=== PATIENT | male | born 2000 | race Caucasian/White ===

== ENCOUNTER 2025-08-14 07:56 | Outpatient (AMB) | payer BC, SELFPAY ==
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
--- OUTSIDE RECORDS SUMMARY | 2025-08-14 08:00 | XMS_ITS | Clinical Summary ---
Author Organization [facility] Address [address] [place] [address] Care Team Providers Care Business Solutions Consultant Name Role Phone Jelena Wright NP Primary Care Provider [phone] Allergies No known active allergies Medications Medication Sig Dispensed Refills Start Date End Date Status SUMAtriptan (IMITREX) 50 MG tablet TAKE 1 TABLET BY MOUTH 1 TIME NEEDED FOR MIGRAINE HEADACHE. MAY REPEAT DOSE AFTER 2 HOURS UP TO A. MAXIMUM OF 200 MG IN 24 HOURS 0 11/03/2021 Active buPROPion (WELLBUTRIN XL) 150 MG 24 hr tablet TAKE 1 TABLET BY MOUTH EVERY 24 HOURS 0 11/13/2023 Active magnesium oxide (MAG-OX) 400 MG tablet Take 1 tablet (400 mg total) by mouth daily. 0 11/13/2023 Active Riboflavin (Vitamin B-2) 100 MG TABS Take by mouth. 0 07/12/2023 Acti ve busPIRone (BUSPAR) 7.5 MG tablet Take 2 tablets (15 mg total) by mouth. 0 04/11/2023 Active acetaminophen (TYLENOL) 325 MG tablet Take 3 tablets (975 mg total) by mouth every 8 (eight) hours as needed for pain for up to 15 doses. 15 tablet 0 11/19/2023 Active cyclobenzaprine (FLEXERIL) 10 MG tablet Take 1 tablet (10 mg total) by mouth 3 (three) times a day as needed for up to 15 doses. 15 tablet 0 11/19/2023 Active ibuprofen 800 MG tablet Take 1 tablet (800 mg total) by mouth every 8 (eight) hours as needed for pain for up to 15 doses. 15 tablet 0 11/19/2023 Active oxyCODONE (ROXICODONE) 5 MG immediate release tablet Take 1 tablet (5 mg total) by mouth every 4 (four) hours as needed for pain. 15 tablet 0 11/19/2023 Active predniSONE (DELTASONE) 50 MG tablet Take 1 tablet (50 mg total) by mouth daily. 5 tablet 0 02/22/2024 Active naproxen (Naprosyn) 500 MG tablet Take 1 tablet (500 mg total) by mouth 2 (two) times a day as needed. 30 tablet 0 02/22/2024 Active methocarbamol (ROBAXIN) 500 MG tablet Take 1 tablet (500 mg total) by mouth 3 (three) times a day as needed for up to 15 doses. 15 tablet 0 04/10/2024 Active ondansetron (ZOFRAN-ODT) 8 MG disintegrating tablet Take 1 tablet (8 mg total) by mouth every 12 (twelve) hours as needed for nausea for up to 15 doses. 15 tablet 0 04/10/2024 Active oxyCODONE-acetaminophe n (PERCOCET) 5-325 MG per tablet Take 1 tablet by mouth every 6 (six) hours as needed for pain. 10 tablet 0 05/28/2024 Active ondansetron (ZOFRAN-ODT) 4 MG disintegrating tablet Take 1 tablet (4 mg total) by mouth every 6 (six) hours as needed. 10 tablet 0 05/28/2024 Active Active Problems No known active problems Social History Tobacco Use Types Packs/Day Years Used Date Smoking Tobacco: Every Day Cigarettes 0.5 Smokeless Tobacco: Never Alcohol Use Standard Drinks/Week Comments Not Currently 0 (1 standard drink = 0.6 oz pur e alcohol) Sex and Gender Information Value Date Recorded Sex Assigned at Male 11/16/2021 6:17 PM EST Gender Identity Male 08/04/2022 8:13 AM EDT Sexual Orientation Not on file Job Start Date Occupation Industry Not on file Not on file Not on file Last Filed Vital Signs Vital Sign Reading Time Taken Comments Blood Pressure 122/83 09/18/2024 8:47 PM EDT Pulse 80 09/18/2024 8:47 PM EDT Temperature 37 C (98.6 F) 09/18/2024 8:47 PM EDT Respiratory Rate 18 09/18/2024 8:47 PM EDT Oxygen Saturation 97% 09/18/2024 8:47 PM EDT Inhaled Oxygen Concentration - - Weight 99.3 kg (219 lb) 09/18/2024 8:47 PM EDT Height 180.3 cm (5' 11 ) 09/18/2024 8:47 PM EDT Body Mass Index 30.54 09/18/2024 8:47 PM EDT Plan of Treatment Health Maintenance Due Date Last Done Comments Hepatitis C Screening 2000 COVID-19 Vaccine (#1) 05/05/1999 Pneumococcal Vaccine (1 of 1 - PPSV23 or PCV20) 2004 09/14/2000, 07/06/2000 Depression Screening 2010 Preventative Health Evaluation 2016 Influenza Vaccine (#1) 2025 , 11/02/2021, 08/03/2016, Additional history exists DTap / Tdap / Td (9 - Td or Tdap) 02/20/2028 02/19/2018, 02/19/2018, 01/11/2010, Additional history exists Hepatitis B Vaccines Completed 08/05/1999, 01/05/1999, 1998 RSV Ped < 20 months Aged Out No longe r eligible based on patient's age to complete this topic Advance Directives For more information, please contact: [phone] Documents on File Type Date Recorded Patient Animal Care Provider Expl anation Advance Directive and Living Will 08/04/2022 8:13 AM Care Teams Business Solutions Consultant Relationship Specialty Start Date End Date Jelena Wright NP [address] [place] [id number] PCP - General Family Medicine 11/16/21
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
--- OUTSIDE RECORDS SUMMARY | 2025-08-14 08:00 | XMS_ITS | Clinical Summary ---
Author Organization [facility] Address [address] [place] [id number] Phone Care Team Providers Care Tour Bus Driver/Guide Name Role Phone Austin Mcdaniel MD Primary Care Provider Unavai lable Allergies No known active allergies Medications Albuterol Sulfate (PROAIR HFA IN) Inhale. Active FLUoxetine 20 MG tabletIndication s:Depression with anxiety Take 1 tablet (20 mg total) by mouth once daily. 30 tablet 09/16/2018 Active Active Problems Problem Noted Date Diagnosed Date Allergic rhinitis 04/23/2018 Mild intermittent asthma 04/23/2018 Depression with anxiety 04/23/2018 Immunizations Immunization Administration Dates Next Due DTaP 12/03/2003, 0,05/09/1999,03/04,01/05/1999 HPV, Quadrivalent 08/13/2014,03/24/2014,01/21/20 14 Hep B, ped/adol 08/05/1999,01/05/1999,1998 Hib (PRP-T) 02/06/2000, 9,03/04/1999,01/05 IPV 12/03/2003, 0,03/04/1999,01/05 Influenza 09/13/2007 Influenza, injectable, quadrivalent 08/23/2013,1 ,08/12/2011 Influenza, injectable, quadr ivalent, preservative free 08/03/2016,08/21/2015,08/22/2014 MMR 11/07/2002,11/21/1999 Meningococcal Conj (Menactra) MCV4P 02/10/2015,0 01/11/2010 Pneumococcal Conjugate 09/14/2000,07/06/2000 Td (adult) (Tenivac), 5 Lf t etanus toxoid, PF, adsorbed 02/19/2018 Tdap 01/11/2010 Varicella 01/08/2009,11/21/1999 Social History Tobacco Use Types Packs/Day Years Used Date Smoking Tobacco: Never Assessed Sex and Gender Information Value Date Recorded Sex Assigned at Not on file Legal Sex Male 6:19 PM EDT Gender Identity Not on file Sexual Orientation Not on file Last Filed Vital Signs Vital Sign Reading Time Taken Comments Blood Pressure 108/68 07/30/2018 9:56 AM EDT Pulse 91 03/30/2017 12:00 AM EDT Temperature 36.5 C (97.7 F) 07/30/2018 9:56 AM EDT Respiratory Rate - - Oxygen Saturation 98% 03/30/2017 12:00 AM EDT Inhaled Oxygen Concentration - - Weight 77.7 kg (171 lb 4 oz) 07/30/2018 9:56 AM EDT Height 180.3 cm (5' 11 ) 07/27/2018 2:08 PM EDT Body Mass Index 23.88 07/27/2018 2:08 PM EDT Plan of Treatment Health Maintenance Due Date Last Done Comments Influenza Vaccines (#1) 2025 08/03/20 16, 08/21/2015, 08/22/2014, Additional history exists COVID-19 Vaccine ( season) 2025 DTaP,Tdap,and Td Vaccines (8 - Td or Tdap) 02/20/2028 02/19/2018, 01/11/2010, 12/03/2003, Additional history exists Hepatitis B Vaccines Completed 08/05/1999, 01/05/1999, 1998 HIB Vaccines Completed 02/06/2000, 04/20, 03/04/1999, Additional history exists Pneumococcal Vaccine Completed 09/14/2000, 07/06/20 MMR Vaccines Completed 11/07/2002, 11/21/1999 IPV Vaccines Completed 12/03/2003, 01/2000, 03/04/1999, Additional history exists Varicella Vaccines Completed 01/08/2009, 11/21/1999 HPV Vaccines Completed 08/13/2014, 05/0 04/2014, 01/20/2014 Meningococcal Vaccine Completed 02/10/2015, 010 Hepatitis A Vaccines Aged Out No long er eligible based on patient's age to complete this topic Men B Vaccine Aged Out No longer elig ible based on patient's age to complete this topic Insurance [facility] [employer] Care Teams Tour Bus Driver/Guide Relationship Specialty Start Date End Date Austin Mcdaniel MD PCP - General Pediatrics 04/22/18
--- OUTSIDE RECORDS SUMMARY | 2025-08-14 08:00 | XMS_ITS | Encounter Summary ---
Author Organization [facility] Address [address] [place] [id number] Phone Care Team Providers Care Track Laying Machine Operator Name Role Phone Austin Mcdaniel MD Primary Care Provider Juan ram Encounter Details Date Type Department Care Team (Late st Contact Info) Description 04/07/2018 Conversion [facility]counter [facility] [address] [address] Social History Tobacco Use Types Packs/Day Years Used Date Smoking Tobacco: Never Assessed Sex and Gender Information Value Date Recorded Sex Assigned at Not on file Legal Sex Male 6:19 PM EDT Gender Identity Not on file Sexual Orientation Not on file documented as of this encounter Plan of Treatment Not on file documented as of this encounter Visit Diagnoses Not on filedocumented in this encounter Care Teams Track Laying Machine Operator Relationship Specialty Start Date End Date Austin Mcdaniel MD PCP - General Pediatrics 04/22/18 documented as of this encounter
--- OUTSIDE RECORDS SUMMARY | 2025-08-14 08:00 | XMS_ITS | Clinical Summary ---
Author Organization [facility] Address [address] [place] [address] Phone Care Team Providers Care Geomagnetist Name Role Phone Jelena Wright Primary Care Provider Allergies No known active allergies Medications buPROPion XL (WELLBUTRIN XL) 300 mg 24 hr tablet Take 1 tablet (300 mg total) by mouth 1 (one) time each day. Active topiramate (TOPAMAX SPRINKLE) 25 mg capsule Take 1 capsule (25 mg total) by mouth at bedtime. Active busPIRone (BUSPAR) 7.5 mg tablet Take 2 tablets (15 mg total) by mouth 2 (two) times a day. 3 Active magnesium oxide (MAG-OX) 400 mg (241.3 elemental magnesium) tablet Take 1 tablet (400 mg total) by mouth 1 (one) time each day. Active lidocaine 4 % patch Apply 1 patch topically 1 (one) time each day. 30 each 5 09/07/20 25 Active Encounters Date Type Department Care Team Description 08/08/2025 8:09 PM EDT - 08/08/2025 8:53 PM EDT Emergency [facility] [address] [place] [phone] Momo Boudreaux MD Acute left-sided low back pain with left-sided sciatica (Primary Dx) Discharge Disposition: Home or Self Care from Last 3 Months Surgical History Surgery Date Site/Laterality Comments HERNIA REPAIR PROCEDURE:HERNIA REPAIR Medical History Medical History Date Comments Migraines DX:Migraines Arthritis DX:Arthritis;COM MENT: in back Social History Tobacco Use Types Packs/Day Years [...] Orientation Straight 12/30/2024 12 :12 PM EST Obstetrics History Last Filed Vital Signs Vital Sign Reading Time Taken Comments Blood Pressure 123/87 08/08/2025 8:02 PM EDT Pulse 95 08/08/2025 8:02 PM EDT Temperature 37 C (98.6 F) 08/08/2025 8:02 PM EDT Respiratory Rate 18 08/08/2025 8:02 PM EDT Oxygen Saturation 98% 08/08/2025 8:02 PM EDT Inhaled Oxygen Concentration - - Weight 97.5 kg (215 lb) 12/30/2024 11:34 AM EST Height 180.3 cm (5' 11 ) 12/30/2024 11:34 AM EST Body Mass Index 29.99 12/30/2024 11:34 AM EST Plan of Treatment Health Maintenance Due Date Last Done Comments Pneumococcal Vaccine: Pediatrics (0 to 5 Years) and At-Risk Patients (6 to 49 Years) (1 of 1 - PPSV23) 2004 09/14/2000, 07/06/2000 Cholesterol Screening (Lipid Panel) 10/22/2022 HIV Screening 10/22/2022 Hepatitis C Screening 10/22/2022 Social Influencers of Health Screening 10/22/2022 Depression Screening 11/19/2024 COVID-19 Vaccine ( season) 2025 10/20/2021, 04/12/2021, 03/15/2021 Influenza Vaccine (#1) 2025 , 11/30/2023, 11/02/2021, Additional history exists DTaP,Tdap,and Td Vaccines (8 - Td or Tdap) 02/20/2028 02/19/2018, 01/11/2010, 12/03/2003, Additional history exists RSV Immunization Adult Patients (1 - 1-dose 75+ series) 2073 Hepatitis B Vaccines Completed 08/05/1999, 01/05/1999, 1998 HIB Vaccines Completed 02/06/2000, 1998, 03/04/1999, Additional history exists MMR Vaccines Completed 11/07/2002, 11/21/1999 IPV Vaccines Completed 12/03/2003, 01/2000, 03/04/1999, Additional history exists Varicella Vaccines Completed 01/08/2009, 11/21/1999 HPV Vaccines Completed 08/13/2014, 04/2014, 01/20/2014 Meningococcal ACWY Vaccine Completed 02/10/2015, Hepatitis A Vaccines Aged Out No long er eligible based on patient's age to complete this topic Meningococcal B Vaccine Aged Out No l onger eligible based on patient's age to complete this topic RSV Immunization Patients Under 20 months Aged Out No longer eligible based on patient's age to complete this topic Insurance [facility] Care Teams Geomagnetist Relationship Specialty Start Date End Date Jelena Wright [address] [place] [address] PCP - General Family Medicine 11/16/21
--- OUTSIDE RECORDS SUMMARY | 2025-08-14 08:00 | XMS_ITS | Encounter Summary ---
Author Organization [facility] Address [address] [place] [id number] Phone Care Team Providers Care Shipping Clerk/Admin Name Role Phone Austin Mcdaniel MD Primary Care Provider Juan ram Encounter Details Date Type Department Care Team (Late st Contact Info) Description 01/11/2010 Documentation [facility] [place] [place] Family Medicine [address] [place] [address] Family Medicine, Physician [address] [place] [address] Social History Tobacco Use Types Packs/Day Years [...] on filedocumented in this encounter Care Teams Shipping Clerk/Admin Relationship Specialty Start Date End Date Austin Mcdaniel MD PCP - General Pediatrics 04/22/18 documented as of this encounter
[2025-08-14 08:06] VITALS: BP 118/70; PULSE 93; RESP 16; O2SAT 98; BMI 25.1
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
== END 2025-08-14 08:45 | disposition home or self-care (01) ==
LOC: HO.HSM 07:56
PROVIDERS: PCP Nurse Practitioner Family; Visit Provider Nurse Practitioner
DX: M25.511 Pain in right shoulder (principal); M25.512 Pain in left shoulder; M54.81 Occipital neuralgia; M79.18 Myalgia, other site; G43.709 Chronic migraine without aura, not intractable, without status migrainosus
CPT/HCPCS: 20552; 64405; 99214

== ENCOUNTER → 2025-08-14 07:56 | Outpatient (BNVA) | payer BC, SELFPAY | PROVIDERS: PCP Nurse Practitioner Family; Visit Provider Nurse Practitioner | DX: M25.511 Pain in right shoulder (principal); M54.81 Occipital neuralgia; M79.18 Myalgia, other site; G43.709 Chronic migraine without aura, not intractable, without status migrainosus | CPT/HCPCS: 20552; 64405; J0665; J2003 ==

== ENCOUNTER 2025-09-08 08:22 | Outpatient (AMB) | payer BC, SELFPAY ==
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
[2025-09-08 08:27] VITALS: BP 118/78; PULSE 91; RESP 16; O2SAT 98; BMI 25.1
--- OUTSIDE RECORDS SUMMARY | 2025-09-08 08:32 | XMS_ITS | Clinical Summary ---
Author Organization [facility] Address [address] [place] [id number] Phone Care Team Providers Care Green Building Energy Engineer Name Role Phone Austin Mcdaniel MD Primary [...] patient's age to complete this topic Insurance [facility] [employer] Care Teams Green Building Energy Engineer Relationship Specialty Start Date End Date Austin Mcdaniel MD PCP - General Pediatrics 04/22/18
--- OUTSIDE RECORDS SUMMARY | 2025-09-08 08:32 | XMS_ITS | Encounter Summary ---
Author Organization [facility] Address [address] [place] [phone] Phone Care Team Providers Care Chief Engineer Research Name Role Phone Austin Mcdaniel MD Primary Care Provider Juan ram Encounter Details Date Type Department Care Team (Late st Contact Info) Description 04/07/2018 Conversion Encounter [facility] [address] [address] Social History Tobacco Use Types Packs/Day Years [...] on filedocumented in this encounter Care Teams Chief Engineer Research Relationship Specialty Start Date End Date Austin Mcdaniel MD PCP - General Pediatrics 04/22/18 documented as of this encounter
--- OUTSIDE RECORDS SUMMARY | 2025-09-08 08:32 | XMS_ITS | Encounter Summary ---
Author Organization [facility] Address [address] [place] [phone] Phone Care Team Providers Care Clinical Team Lead Name Role Phone Austin Mcdaniel MD Primary Care Provider Juan ram Encounter Details Date Type Department Care Team (Late st Contact Info) Description 01/11/2010 Documentation [facility] [place] [facility] [address] [place] [address] Family Medicine, Physician [address] [place] [address] Social History Tobacco Use Types Packs/Day Years [...] on filedocumented in this encounter Care Teams Clinical Team Lead Relationship Specialty Start Date End Date Austin Mcdaniel MD PCP - General Pediatrics 04/22/18 documented as of this encounter
--- OUTSIDE RECORDS SUMMARY | 2025-09-08 08:32 | XMS_ITS | Clinical Summary ---
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
== END 2025-09-08 09:13 | disposition home or self-care (01) ==
LOC: HO.HSM 08:23
PROVIDERS: PCP Nurse Practitioner Family; Visit Provider Nurse Practitioner
DX: M25.511 Pain in right shoulder (principal); M25.512 Pain in left shoulder; M54.81 Occipital neuralgia; M79.18 Myalgia, other site; G43.709 Chronic migraine without aura, not intractable, without status migrainosus
CPT/HCPCS: 99213

== ENCOUNTER 2025-09-15 11:07 | Outpatient (AMB) | payer BC, SELFPAY ==
[2025-09-15 11:31] VITALS: BP 108/74; PULSE 87; RESP 16; O2SAT 99; BMI 25.1
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
--- OUTSIDE RECORDS SUMMARY | 2025-09-15 14:22 | XMS_ITS | Clinical Summary ---
Author Organization [facility] Address [address] [place] [address] Phone Care Team Providers Care Monitoring Tech Name Role Phone Jelena Wright Primary Care Provider [phone] Allergies No known active allergies Medications buPROPion [...] each day. 30 each 5 09/07/20 25 Encounters Date Type Department Care Team Description 08/08/2025 8:09 PM EDT - 08/08/2025 8:53 PM EDT Emergency [facility] [address] [place] [id number] Momo Boudreaux MD Acute left-sided low back [...] to 49 Years) (1 of 1 - PPSV23, PCV20, or PCV21) 2004 09/14/2000, 07/06/2000 Cholesterol Screening (Lipid Panel) [...] patient's age to complete this topic Insurance [facility] ([facility]) Care Teams Monitoring Tech Relationship Specialty Start Date End Date Jelena Wright [address] [place] [address] PCP - General Family Medicine 11/16/21
--- OUTSIDE RECORDS SUMMARY | 2025-09-15 14:22 | XMS_ITS | Clinical Summary ---
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
--- OUTSIDE RECORDS SUMMARY | 2025-09-15 14:22 | XMS_ITS | Encounter Summary ---
Author Organization [facility] Address [address] [place] [id number] Phone Care Team Providers Care Oncology Physician Name Role Phone Austin Mcdaniel MD Primary Care Provider Juan ram Encounter Details Date Type Department Care Team (Late st Contact Info) Description 04/07/2018 Conversion Encounter [facility] [address] [address] Social History Tobacco Use Types Packs/Day Years [...] on filedocumented in this encounter Care Teams Oncology Physician Relationship Specialty Start Date End Date Austin Mcdaniel MD PCP - General Pediatrics 04/22/18 documented as of this encounter
--- OUTSIDE RECORDS SUMMARY | 2025-09-15 14:22 | XMS_ITS | Encounter Summary ---
Author Organization [facility] Address [address] [place] [phone] Phone Care Team Providers Care Data Services Developer Name Role Phone Austin Mcdaniel MD Primary Care Provider Juan ram Encounter Details Date Type Department Care Team (Late st Contact Info) Description 01/11/2010 Documentation [facility] [address] [place] [address] Family Medicine, Physician [address] [place] [address] Social History Tobacco Use Types Packs/Day Years [...] on filedocumented in this encounter Care Teams Data Services Developer Relationship Specialty Start Date End Date Austin Mcdaniel MD PCP - General Pediatrics 04/22/18 documented as of this encounter
--- OUTSIDE RECORDS SUMMARY | 2025-09-15 14:22 | XMS_ITS | Clinical Summary ---
Author Organization [facility] Address [address] [place] [address] Phone Care Team Providers Care Supervisory Clerk Name Role Phone Austin Mcdaniel MD Primary [...] to complete this topic Insurance [facility] Care Teams Supervisory Clerk Relationship Specialty Start Date End Date Austin Mcdaniel MD PCP - General Pediatrics 04/22/18
== END 2025-09-15 11:54 | disposition home or self-care (01) ==
LOC: HO.HSM 11:07
PROVIDERS: PCP Nurse Practitioner Family; Visit Provider Nurse Practitioner
DX: G43.709 Chronic migraine without aura, not intractable, without status migrainosus (principal)
CPT/HCPCS: 64615

== ENCOUNTER → 2025-09-15 11:07 | Outpatient (BNVA) | payer BC, SELFPAY | PROVIDERS: PCP Nurse Practitioner Family; Visit Provider Nurse Practitioner | DX: G43.709 Chronic migraine without aura, not intractable, without status migrainosus (principal) | CPT/HCPCS: 64615; J0585 ==